=== PATIENT | female | born 1970 | race Caucasian/White ===

== ENCOUNTER → 2021-05-23 15:00 | Outpatient (CLI) | payer OTHER, MEDICAID, SELFPAY ==
[2021-05-23 15:57] LABS: Hemoglobin A1C% w Est Avg Glu 6.4 % (4.0-6.0)
== END ==
PROVIDERS: PCP Family Medicine; Referring Provider Family Medicine; Visit Provider Family Medicine
DX: E11.9 Type 2 diabetes mellitus without complications (principal); I69.398 Other sequelae of cerebral infarction; R56.9 Unspecified convulsions
CPT/HCPCS: 36415; 83036

== ENCOUNTER → 2021-06-06 12:28 | Outpatient (CLI) | payer OTHER, MEDICAID, SELFPAY | PROVIDERS: PCP Family Medicine; Visit Provider Family Medicine | DX: R30.0 Dysuria (principal) | CPT/HCPCS: 81002; 87086 ==